=== PATIENT | female | born 1990 | race Caucasian/White ===

== ENCOUNTER → 2024-02-21 11:40 | Outpatient (REF) | payer OTHER, SELFPAY ==
[2024-02-21 22:35] LABS: Hepatitis B Surface Antibody Indeterminate
[2024-02-22 12:49] LABS: Rubella Positive
[2024-02-23 14:42] LABS: Quantiferon Mitogen minus NIL 9.94 IU/mL; Quantiferon NIL 0.06 IU/mL; Quantiferon TB Gold Plus Negative (Negative)
== END ==
LOC: REG 11:40
PROVIDERS: ATTENDING PHYSICIAN Nurse Practitioner; FAMILY PHYSICIAN Family Medicine
DX: Z23 Encounter for immunization (principal)
CPT/HCPCS: 36415; 86480; 86706; 86735; 86762; 86765; 86787